=== PATIENT | female | born 1995 | race Caucasian/White ===

== ENCOUNTER 2020-10-09 10:47 | Inpatient (IN) | payer MEDICAID, SELFPAY ==
[2020-10-09] VITALS (8 sets, daily range): BP systolic 111–141; BP diastolic 69–88; PULSE 78–101; RESP 16–18; TEMP 36.7–36.9; O2SAT 93–100; BMI 24.8
--- NOTE | 2020-10-09 11:12 | PC.NURSE ---
Pt is awake, lookingaround and responds to her name but will not respond to questions in Mexican or Macedonian. She has made several attempts to exit the bed and now has sitter at bedside.
--- NOTE | 2020-10-09 11:45 | ED_ITS ---
HPI - Psych General Chief Complaint: ETOH/Substance Use <RYDER Ortega - Last Filed: 10/09/20 15:18> Stated Complaint: UNDER THE INFLUENCE OF UNK SUBSTANCE <RYDER Ortega - Last Filed: 10/09/20 15:18> Time Seen by Provider: 10/09/20 11:45 <RYDER Ortega - Last Filed: 10/09/20 15:18> Source: EMS <RYDER Ortega - Last Filed: 10/09/20 15:18> Mode of arrival: EMS <RYDER Ortega - Last Filed: 10/09/20 15:18> Limitations: altered mental status <RYDER Ortega - Last Filed: 10/09/20 15:18> History of Present Illness HPI Narrative: 25 y/o female presenting via EMS with AMS. Per neighbors and family patient developed strange behavior today after using unknown substance. She was having trouble speaking, looked like she was going to fall over. She reportedly vomited. She was found by EMS with possible urine on her socks and only half clothed. She was tachycardic to 120, awake and alert but not answering any questions. <RYDER Ortega - Last Filed: 10/09/20 15:18> Related Data Home Medications: Home Medications Medication Instructions Recorded Confirmed Unobtainable 10/09/20 10/09/20 <RYDER Ortega - Last Filed: 10/09/20 15:18> Allergies/Adverse Reactions: Allergies Allergy/AdvReac Type Severity Reaction Status Date / Time No Known Allergies Allergy Unverified 08/16/20 19:53 [No Known Allergies*] <RYDER Ortega - Last Filed: 10/09/20 15:18> Review of Systems Review of Systems: Yes Unobtainable due to mental status <RYDER Ortega - Last Filed: 10/09/20 15:18> [facility] Past Medical History Attestation statement: The following information was validated with the patient. <RYDER Ortega - Last Filed: 10/09/20 15:18> Social History Social History: Social History Household Members: Significant Other Housing: Apartment Alcohol intake: unknown Smoking Status: Current every day smoker Tobacco Type: Cigarette Smoked in Last 30 Days: Yes Patient Interested in Nicotine Replacement: No Patient Given Instructions on How to Stop Smoking: No Second Hand Smoke Exposure: No Use of substances other than those prescribed or required for medical reasons: Unable to respond Substance Use Type: Crack/Cocaine Substance Use Frequency: Occasionally Last Used Substance: Days (ago) Currently Displaying Signs/Symptoms of Drug Intoxication Withdrawal: No Any prior treatment program specific to substance use: No Have you been hit, kicked, punched, or otherwise hurt by someone within the past year? If so, by whom?: No Do you feel safe in your current relationship?: Yes Is there a partner from a previous relationship who is making you feel unsafe now?: No Are you made to feel afraid or neglected: No Advance Directives: No Advance Directives Information Provided: No Do you have thoughts of harming others: None Do you have a plan to hurt others: No Plan Recently lost weight without trying: Yes service: No <RYDER Ortega - Last Filed: 10/09/20 15:18> Physical Exam Vital Signs: Vital Signs: Last Vital Signs Temp 98.4 F 10/12/20 00:00 Pulse 77 10/12/20 00:00 Resp 16 10/12/20 00:00 BP 100/59 L 10/12/20 00:00 Pulse Ox 99 10/12/20 00:00 Body Mass Index 24.8 Appearance: Alert. Restless, picking at her hosptial gown. Eyes: Pupils equal, round and reactive to light. ENT: Pharynx normal. Neck: Normal inspection. Neck supple. CVS: tachycardic, regular rhythm. Pulses normal. Respiratory: No respiratory distress. Breath sounds normal. Abdomen: Soft and nontender. +BS x4 Skin: Skin warm and dry. Normal skin color. Normal skin turgor. No rashes. Extremities: No lower extremity edema. Neuro: non-verbal, follows simple commands intermittently, moving all 4 extremiities spontaneously, not cooperative with examination. <RYDER Ortega - Last Filed: 10/09/20 15:18> Vital Signs: Last Vital Signs Temp 98.4 F 10/12/20 00:00 Pulse 77 10/12/20 00:00 Resp 16 10/12/20 00:00 BP 100/59 L 10/12/20 00:00 Pulse Ox 99 10/12/20 00:00 Body Mass Index 24.8 <Santosh Alatorre MD - Last Filed: 10/12/20 02:03> Course Course Course Narrative: 25 y/o with AMS after possible drug ingestion. Used staff physical therapy assistant and patient admitted to using cocaine and smoking marijuana. Concern for lacing with PCP given her behaviors. Possible seizure activity with reports of urinary incontinence at home. Utox and labs pending. Sitter placed at bedside for safety. Will reassess. <RYDER Ortega - Last Filed: 10/09/20 15:18> I have discussed the case and management with the ANANT <Santosh Alatorre MD - Last Filed: 10/12/20 02:03> Reevaluation(s) Reevaluation #1: Critical acetamenophen level of 174 - poison control contacted. Unknown time or quantity of ingestion. Recommending 21 hour NAC protocol. 150 mg/kg loading dose ordered for now with plan to start 50 mg/kg infusion over 4 hours and then 100 mg/kg infusion over 16 hours. INR added to lab work. Utox pending. LFTs within normal limits. Patient re-interviewed with paraprofessional interpreter. She is now much more verbal however still confused. Admits to taking Tylenol last night. States she took 38 milligrams and is unreliable in her responses. She remains confused. Will admit to the hospital. <RYDER Ortega - Last Filed: 10/09/20 15:18> Reevaluation #2: Spoke with hospitalist who accepts admission. <RYDER Ortega - Last Filed: 10/09/20 15:18> Consultations Consultation #1: Poison Control <RYDER Ortega - Last Filed: 10/09/20 15:18> MDM - Psych Differential Diagnosis Differential diagnosis: Likely acute psychosis, suicidal ideation, bipolar disorder, depression, drug-induced psychotic disorder, acute anxiety, autism, substance abuse, alcohol intoxication, overdose and schizoaffective disorder <RYDER Ortega - Last Filed: 10/09/20 15:18> Lab Data Result diagrams: : 10/10/20 04:01 10/10/20 04:01 <RYDER Ortega - Last Filed: 10/09/20 15:18> Labs: Lab Results 10/09/20 10/09/20 10/09/20 Range/Units 12:26 12:26 12:26 WBC 17.2 H (4.8-10.8) X10*3/uL RBC 4.77 (4.20-5.50) X10*6/uL Hgb 12.8 (12.0-16.0) g/dl Hct 40.8 (37-47) % MCV 85.5 (80-98) fL MCH 26.8 L (27.0-33.0) pg MCHC 31.4 (31.0-35.0) g/dl RDW 12.7 (11.0-16.0) % Plt Count 465 H (160-400) X10*3/uL MPV 9.9 (9.4-12.3) fL Immature Gran % (Auto) 0.4 (0.0-0.4) % Neut % (Auto) 87.0 H (45-73) % Lymph % (Auto) 8.3 L (20-40) % Hockley % (Auto) 4.0 (2-11) % Eos % (Auto) 0.0 (0-4) % Baso % (Auto) 0.3 (0-2) % Lymph # (Auto) 1.4 (1.2-4.9) X10*3/uL [place]ockley # (Auto) 0.7 (0.1-1.2) X10*3/uL Eos # (Auto) 0.0 (0.0-0.4) X10*3/uL Baso # (Auto) 0.1 (0.0-0.2) X10*3/uL Abs Immat Gran (auto) 0.07 H (0.00-0.03) X10*3/uL Absolute Neuts (auto) 15.0 H (2.0-8.3) X10*3/uL Absolute Nucleated RBC 0.000 (0.0-0.012) X10*3/uL Nucleated RBC % (auto) 0.0 (0.0-0.2) /100WBC PT (10.8-13.0) SEC INR (0.9-1.1) Sodium 143 (135-145) mmol/L Potassium 4.0 (3.3-5.1) mmol/l Chloride 108 (96-108) mmol/L Carbon Dioxide 22 (22-29) mmol/L Anion Gap 17 (12-20) BUN 7 L (9-16) mg/dL Creatinine 0.73 (0.5-1.4) mg/dL Estim Creat Clear Calc 104.1 Estimated GFR > 60 Random Glucose 98 (60-115) mg/dL Calcium 9.5 (8.4-10.2) mg/dL Total Bilirubin 0.3 (0.0-1.0) mg/dL AST 26 (5-31) U/L ALT 29 (0-31) U/L Alkaline Phosphatase 68 (39-117) U/L Total Protein 7.7 (6.5-8.0) g/dL Albumin 4.9 (3.5-5.0) g/dL Urine Test (NEGATIVE) Salicylates < 5.0 L (15-30) mg/dL Urine Opiates Screen (Not Detect) Acetaminophen 174 H* (<30) mcg/mL Ur Barbiturates Screen (Not Detect) Ur Phencyclidine Scrn (Not Detect) Ur Amphetamines Screen (Not Detect) U Benzodiazepines Scrn (Not Detect) Urine Cocaine Screen (Not Detect) U Marijuana (THC) Screen (Not Detect) Ethyl Alcohol < 10 mg/dL 10/09/20 10/09/20 10/09/20 Range/Units 14:01 14:01 14:10 WBC (4.8-10.8) X10*3/uL RBC (4.20-5.50) X10*6/uL Hgb (12.0-16.0) g/dl Hct (37-47) % MCV (80-98) fL MCH (27.0-33.0) pg MCHC (31.0-35.0) g/dl RDW (11.0-16.0) % Plt Count (160-400) X10*3/uL MPV (9.4-12.3) fL Immature Gran % (Auto) (0.0-0.4) % Neut % (Auto) (45-73) % Lymph % (Auto) (20-40) % Hockley % (Auto) (2-11) % Eos % (Auto) (0-4) % Baso % (Auto) (0-2) % Lymph # (Auto) (1.2-4.9) X10*3/uL [place] # (Auto) (0.1-1.2) X10*3/uL Eos # (Auto) (0.0-0.4) X10*3/uL Baso # (Auto) (0.0-0.2) X10*3/uL Abs Immat Gran (auto) (0.00-0.03) X10*3/uL Absolute Neuts (auto) (2.0-8.3) X10*3/uL Absolute Nucleated RBC (0.0-0.012) X10*3/uL Nucleated RBC % (auto) (0.0-0.2) /100WBC PT 13.6 H (10.8-13.0) SEC INR 1.1 (0.9-1.1) Sodium (135-145) mmol/L Potassium (3.3-5.1) mmol/l Chloride (96-108) mmol/L Carbon Dioxide (22-29) mmol/L Anion Gap (12-20) BUN (9-16) mg/dL Creatinine (0.5-1.4) mg/dL Estim Creat Clear Calc Estimated GFR Random Glucose (60-115) mg/dL Calcium (8.4-10.2) mg/dL Total Bilirubin (0.0-1.0) mg/dL AST (5-31) U/L ALT (0-31) U/L Alkaline Phosphatase (39-117) U/L Total Protein (6.5-8.0) g/dL Albumin (3.5-5.0) g/dL Urine Test NEGATIVE (NEGATIVE) Salicylates (15-30) mg/dL Urine Opiates Screen Not Detected (Not Detect) Acetaminophen (<30) mcg/mL Ur Barbiturates Screen Not Detected (Not Detect) Ur Phencyclidine Scrn Not Detected (Not Detect) Ur Amphetamines Screen Not Detected (Not Detect) U Benzodiazepines Scrn Not Detected (Not Detect) Urine Cocaine Screen POSITIVE H (Not Detect) U Marijuana (THC) Screen Not Detected (Not Detect) Ethyl Alcohol mg/dL <RYDER Ortega - Last Filed: 10/09/20 15:18> Lab Results 10/09/20 10/09/20 10/09/20 Range/Units 12:26 12:26 12:26 WBC 17.2 H (4.8-10.8) X10*3/uL RBC 4.77 (4.20-5.50) X10*6/uL Hgb 12.8 (12.0-16.0) g/dl Hct 40.8 (37-47) % MCV 85.5 (80-98) fL MCH 26.8 L (27.0-33.0) pg MCHC 31.4 (31.0-35.0) g/dl RDW 12.7 (11.0-16.0) % Plt Count 465 H (160-400) X10*3/uL MPV 9.9 (9.4-12.3) fL Immature Gran % (Auto) 0.4 (0.0-0.4) % Neut % (Auto) 87.0 H (45-73) % Lymph % (Auto) 8.3 L (20-40) % Hockley % (Auto) 4.0 (2-11) % Eos % (Auto) 0.0 (0-4) % Baso % (Auto) 0.3 (0-2) % Lymph # (Auto) 1.4 (1.2-4.9) X10*3/uL [place] # (Auto) 0.7 (0.1-1.2) X10*3/uL Eos # (Auto) 0.0 (0.0-0.4) X10*3/uL Baso # (Auto) 0.1 (0.0-0.2) X10*3/uL Abs Immat Gran (auto) 0.07 H (0.00-0.03) X10*3/uL Absolute Neuts (auto) 15.0 H (2.0-8.3) X10*3/uL Absolute Nucleated RBC 0.000 (0.0-0.012) X10*3/uL Nucleated RBC % (auto) 0.0 (0.0-0.2) /100WBC PT (10.8-13.0) SEC INR (0.9-1.1) Sodium 143 (135-145) mmol/L Potassium 4.0 (3.3-5.1) mmol/l Chloride 108 (96-108) mmol/L Carbon Dioxide 22 (22-29) mmol/L Anion Gap 17 (12-20) BUN 7 L (9-16) mg/dL Creatinine 0.73 (0.5-1.4) mg/dL Estim Creat Clear Calc 104.1 Estimated GFR > 60 Random Glucose 98 (60-115) mg/dL Calcium 9.5 (8.4-10.2) mg/dL Total Bilirubin 0.3 (0.0-1.0) mg/dL AST 26 (5-31) U/L ALT 29 (0-31) U/L Alkaline Phosphatase 68 (39-117) U/L Total Protein 7.7 (6.5-8.0) g/dL Albumin 4.9 (3.5-5.0) g/dL Urine Test (NEGATIVE) Salicylates < 5.0 L (15-30) mg/dL Urine Opiates Screen (Not Detect) Acetaminophen 174 H* (<30) mcg/mL Ur Barbiturates Screen (Not Detect) Ur Phencyclidine Scrn (Not Detect) Ur Amphetamines Screen (Not Detect) U Benzodiazepines Scrn (Not Detect) Urine Cocaine Screen (Not Detect) U Marijuana (THC) Screen (Not Detect) Ethyl Alcohol < 10 mg/dL 10/09/20 10/09/20 10/09/20 Range/Units 14:01 14:01 14:10 WBC (4.8-10.8) X10*3/uL RBC (4.20-5.50) X10*6/uL Hgb (12.0-16.0) g/dl Hct (37-47) % MCV (80-98) fL MCH (27.0-33.0) pg MCHC (31.0-35.0) g/dl RDW (11.0-16.0) % Plt Count (160-400) X10*3/uL MPV (9.4-12.3) fL Immature Gran % (Auto) (0.0-0.4) % Neut % (Auto) (45-73) % Lymph % (Auto) (20-40) % [place]ock[place] % (Auto) (2-11) % Eos % (Auto) (0-4) % Baso % (Auto) (0-2) % Lymph # (Auto) (1.2-4.9) X10*3/uL [place] # (Auto) (0.1-1.2) X10*3/uL Eos # (Auto) (0.0-0.4) X10*3/uL Baso # (Auto) (0.0-0.2) X10*3/uL Abs Immat Gran (auto) (0.00-0.03) X10*3/uL Absolute Neuts (auto) (2.0-8.3) X10*3/uL Absolute Nucleated RBC (0.0-0.012) X10*3/uL Nucleated RBC % (auto) (0.0-0.2) /100WBC PT 13.6 H (10.8-13.0) SEC INR 1.1 (0.9-1.1) Sodium (135-145) mmol/L Potassium (3.3-5.1) mmol/l Chloride (96-108) mmol/L Carbon Dioxide (22-29) mmol/L Anion Gap (12-20) BUN (9-16) mg/dL Creatinine (0.5-1.4) mg/dL Estim Creat Clear Calc Estimated GFR Random Glucose (60-115) mg/dL Calcium (8.4-10.2) mg/dL Total Bilirubin (0.0-1.0) mg/dL AST (5-31) U/L ALT (0-31) U/L Alkaline Phosphatase (39-117) U/L Total Protein (6.5-8.0) g/dL Albumin (3.5-5.0) g/dL Urine Test NEGATIVE (NEGATIVE) Salicylates (15-30) mg/dL Urine Opiates Screen Not Detected (Not Detect) Acetaminophen (<30) mcg/mL Ur Barbiturates Screen Not Detected (Not Detect) Ur Phencyclidine Scrn Not Detected (Not Detect) Ur Amphetamines Screen Not Detected (Not Detect) U Benzodiazepines Scrn Not Detected (Not Detect) Urine Cocaine Screen POSITIVE H (Not Detect) U Marijuana (THC) Screen Not Detected (Not Detect) Ethyl Alcohol mg/dL <Santosh Alatorre MD - Last Filed: 10/12/20 02:03> Critical Care Time Critical Care Time Critical Care Time: Yes <RYDER Ortega - Last Filed: 10/09/20 15:18> Total Critical Care Time: 45 <RYDER Ortega - Last Filed: 10/09/20 15:18> Attestation: I attest to critical care time spent caring for this patient. She has potential life threatening diagnosis at high risk for deterioration. <RYDER Ortega - Last Filed: 10/09/20 15:18> Discharge Plan Discharge Clinical Impression: Tylenol overdose Qualifiers: Encounter type: initial encounter Injury intent: undetermined intent Qualified Code(s): T39.1X4A - Poisoning by 4-Aminophenol derivatives, undetermined, initial encounter Altered mental status Qualifiers: Altered mental status type: delirium Qualified Code(s): R41.0 - Disorientation, unspecified <RYDER Ortega - Last Filed: 10/09/20 15:18> Patient Disposition: Admitted As Inpatient <RYDER Ortega - Last Filed: 10/09/20 15:18> Interventions: Admission Worksheet (ED) Last Done: 10/09/20 18:02 <RYDER Ortega - Last Filed: 10/09/20 15:18> Discharge Date/Time: 10/09/20 19:10 <RYDER Ortega - Last Filed: 10/09/20 15:18>
[2020-10-09 12:40] LABS: MANUAL DIFF FLAG NO
[2020-10-09 12:44] LABS: Basophils Absolute Auto 0.1 X10*3/uL (0.0-0.2); Basophils Percent Auto 0.3 % (0-2); Hematocrit 40.8 % (37-47); Hemoglobin 12.8 g/dl (12.0-16.0); Imm Gran Abs Auto 0.07 X10*3/uL (0.00-0.03); Imm Gran Pct Auto 0.4 % (0.0-0.4); Lymphocytes Absolute Auto 1.4 X10*3/uL (1.2-4.9); Lymphocytes Percent Auto 8.3 % (20-40); Mean Corpuscular HGB Conc 31.4 g/dl (31.0-35.0); Mean Corpuscular Hemoglobin 26.8 pg (27.0-33.0); Mean Corpuscular Volume 85.5 fL (80-98); Mean Platelet Volume 9.9 fL (9.4-12.3); Monocytes Absolute Auto 0.7 X10*3/uL (0.1-1.2); Platelet Count 465 X10*3/uL (160-400); Red Blood Count 4.77 X10*6/uL (4.20-5.50); Red Cell Distribution Width 12.7 % (11.0-16.0); White Blood Count 17.2 X10*3/uL (4.8-10.8)
[2020-10-09 13:08] LABS: Ethanol < 10 mg/dL
[2020-10-09 13:14] LABS: Alanine Aminotransferase 29 U/L (0-31); Albumin Level 4.9 g/dL (3.5-5.0); Alkaline Phosphatase 68 U/L (39-117); Anion Gap 17 (12-20); Aspartate Amino Transferase 26 U/L (5-31); Bilirubin Total 0.3 mg/dL (0.0-1.0); Blood Urea Nitrogen 7 mg/dL (9-16); Calcium 9.5 mg/dL (8.4-10.2); Carbon Dioxide 22 mmol/L (22-29); Chloride 108 mmol/L (96-108); Creatinine Clr Calc Pharmacy 104.1; Estimated Glomerular Filt Rate > 60; Glucose Random 98 mg/dL (60-115); Sodium 143 mmol/L (135-145); Total Protein 7.7 g/dL (6.5-8.0)
[2020-10-09 13:27] LABS: Salicylate < 5.0 mg/dL (15-30)
[2020-10-09 13:29] LABS: Acetaminophen LAB 174 mcg/mL (<30)
[2020-10-09] MEDS: 0.9 % Sodium Chloride 1,000 ML 999 ML IVCONT (14:12)
[2020-10-09 14:20] LABS: INTERNATIONAL NORM RATIO 1.1 (0.9-1.1); Prothrombin Time 13.6 SEC (10.8-13.0)
[2020-10-09 14:21] LABS: UPreg QC Valid YES; Urine Pregnancy NEGATIVE (NEGATIVE)
[2020-10-09 14:39] LABS: Amphetamine Screen Urine Not Detected (Not Detect); Barbiturates, Urine Not Detected (Not Detect); Benzodiazepines Screen Urine Not Detected (Not Detect); Cannabinoid Screen Urine Not Detected (Not Detect); Cocaine Screen Urine POSITIVE (Not Detect); Opiate Screen Urine Not Detected (Not Detect); Phencyclidine Screen Urine Not Detected (Not Detect)
--- NOTE | 2020-10-09 16:43 | PM.EVENT ---
Event Note Event Note: admission note Date of service 10/09/2020 the patient was seen and evaluated with Gwendolyn Beverly NP. I agree with her note, assessment and plan with the following. a 25 years old lady with no known past medical history presenting to the hospital with abnormal behavior. The patient complaining of abdominal pain for 1 night and has used some Tylenol as she reporting. Evaluation in the emergency showed positive test for high Tylenol level. The treatment and toxicity Tylenol intoxication The story is not clear, no previous hx of drug abuse or suicidal ideation elevated acetaminophine level of 174 Tox control center contacted Follow protocol of N acetyl cystine Follow liver function Rest of evaluations by [employer] OPERATOR note.
--- NOTE | 2020-10-09 18:30 | MHC.CARE ---
CARE team received consult for this patient in [facility] [place] 457-1. Contacted [facility] for further clarification. [facility] reports the patient is still in the ED awaiting transfer, and that she had an overdose. Consult is placed proactively as patient will likely not be able to meet until at least tomorrow. CARE team questioned whether this is a psych eval or for other supports. Unknown at this time. CARE team suggested patient will need to be seen by N due to insurance if it is a psych eval. Will touch base tomorrow to clarify how to best offer support, which may include suggesting referral to N for eval once medically cleared.
--- NOTE | 2020-10-09 18:45 | HP_ITS ---
DATE OF SERVICE: 10/09/2020 PRIMARY CARE PROVIDER: None. CHIEF COMPLAINT: Drug overdose. HISTORY OF PRESENT ILLNESS: A 25-year-old woman with history of substance abuse, presents to the ER after being found on the ground. According to the patient's girlfriend, Gina, she was not there at that time, however, apparently, the patient was driving home from her job in [place] and she received a call from the neighbor saying that they found her on the floor. She rushed home and was able to call EMS. According to the ER note, the patient had developed some strange behavior and had some trouble speaking and she vomited. She may have also urinated on herself. On arrival to the ER, she was still quite confused and it was thought initially that her symptoms are related to drug intoxication. Apparently, the patient did mention that she did use cocaine and smokes marijuana. Urine toxicology showed a critical acetaminophen level of 174. She was started on N-acetylcysteine protocol. During the interview with the patient, she was quite vague about what had happened and was even unable to give me her significant other's phone number. She seemed to be awake with some mild confusion. White blood cell count was elevated at 17.2. Her vital signs were stable, although she was noted to be tachycardic. No hypoxia was noted. Besides NAC protocol, she did receive some IV fluids. She came in for further management and treatment of Tylenol overdose. PAST MEDICAL HISTORY: Reports asthma. PAST SURGICAL HISTORY: Cholecystectomy. SOCIAL HISTORY: Uses cocaine and marijuana. Denies tobacco or alcohol use. SOCIAL HISTORY: Lives with her significant other and children. FAMILY HISTORY: Denies any cardiac disease. ALLERGIES: NO KNOWN ALLERGIES. MEDICATIONS: None. LABORATORY DATA: White blood cell count 17.2, hemoglobin 12.8, hematocrit 40.8, platelets 465. Sodium is 143, potassium is 4.0, chloride is 108, bicarb is 22, BUN is 7, creatinine is 0.73. Tylenol level is 174. Urine, cocaine positive. REVIEW OF SYSTEMS: CONSTITUTIONAL: Denies any recent fever, chills, or decrease in appetite. RESPIRATORY: Denies any shortness of breath, cough, or sputum production. CARDIOVASCULAR: Denies any chest pain, orthopnea, PND, or edema. GASTROINTESTINAL: Denies any dysphagia, abdominal pain, nausea, vomiting, or diarrhea. GENITOURINARY: Denies any dysuria, frequency, or hematuria. MUSCULOSKELETAL: Denies any joint pain or swelling. NEUROPSYCH: Denies any weakness or seizures. All other systems are reviewed and are negative. PHYSICAL EXAMINATION: CONSTITUTIONAL: Resting in bed, appearing in no acute distress. VITAL SIGNS: 98.2, 101, 16, 141/88, 100% on room air. SKIN: Intact without rash or open sores. HEENT: Head is normocephalic, atraumatic. Eyes, pupils are PERRLA. Sclerae anicteric. Mouth and Throat: Mucous membranes are intact and moist. NECK: Supple. No lymphadenopathy. No JVD noted. CHEST: Clear to auscultation without wheezes, rhonchi, or rales. HEART: Regular rate and rhythm. Clear S1, S2. No murmurs, rubs, or gallops. ABDOMEN: Positive bowel sounds. Abdomen is soft, nontender. No hepatomegaly or splenomegaly noted. NEURO: The patient is alert and oriented x3. Some confusion is noted. No focal deficits noted. ASSESSMENT AND PLAN: A 25-year-old woman, who is being admitted after possible Tylenol overdose. She also used cocaine and marijuana, however, the patient was quite vague and was unable to say how many Tylenol she actually took. The only thing she mentioned was that she took 2 ibuprofen because of abdominal pain. 1. Tylenol overdose. N-acetylcysteine protocol started. The patient seemed to be awake, somewhat vague. Vital signs are stable. We will check Tylenol and LFTs every 4 hours as per Poison Control. consult. 2. Asthma. No exacerbation, not on any home medications. 3. Substance abuse. consultation. 4. Leukocytosis. May be reactive. We will check urinalysis. 5. Deep vein thrombosis prophylaxis with early ambulation. 6. Case discussed with Dr. Juárez. 7. Full code. ALBERTO Santa MD JR/CAROL / [phone]
[2020-10-09 18:49] LABS: COVID-19 Test Negative (Negative)
--- NOTE | 2020-10-09 19:09 | PC.NURSE ---
pt has been resting quietly, wakes at times and converses quietly with staff but not using full sentences. She has not been able to explain why she is here or what happened today.Pt awaits transport to floor.
[2020-10-09 20:22] LABS: Acetaminophen LAB 39 mcg/mL (<30); Alanine Aminotransferase 25 U/L (0-31); Alkaline Phosphatase 56 U/L (39-117); Aspartate Amino Transferase 21 U/L (5-31); Bilirubin Direct 0.2 mg/dL (0.0-0.5); Bilirubin Total 0.3 mg/dL (0.0-1.0); Total Protein 6.3 g/dL (6.5-8.0)
[2020-10-09] MEDS: 0.9 % Sodium Chloride Flush 3 ML SYRINGE IVFLUSH (21:30)
[2020-10-10] VITALS (9 sets, daily range): BP systolic 99–126; BP diastolic 57–78; PULSE 78–88; RESP 16–19; TEMP 36.6–37.1; O2SAT 97–99
[2020-10-10] MEDS: 0.9 % Sodium Chloride Flush 3 ML SYRINGE IVFLUSH ×2 (00:07→07:25)
[2020-10-10 01:23] LABS: Acetaminophen LAB 11 mcg/mL (<30); Alanine Aminotransferase 24 U/L (0-31); Albumin Level 3.8 g/dL (3.5-5.0); Alkaline Phosphatase 51 U/L (39-117); Aspartate Amino Transferase 19 U/L (5-31); Bilirubin Direct 0.2 mg/dL (0.0-0.5); Bilirubin Total 0.4 mg/dL (0.0-1.0); Total Protein 5.9 g/dL (6.5-8.0)
[2020-10-10 04:13] LABS: Basophils Absolute Auto 0.1 X10*3/uL (0.0-0.2); Basophils Percent Auto 0.8 % (0-2); Eosinophils Absolute Auto 0.1 X10*3/uL (0.0-0.4); Eosinophils Percent Auto 0.6 % (0-4); Imm Gran Abs Auto 0.02 X10*3/uL (0.00-0.03); Imm Gran Pct Auto 0.2 % (0.0-0.4); Lymphocytes Absolute Auto 2.8 X10*3/uL (1.2-4.9); Lymphocytes Percent Auto 33.3 % (20-40); MANUAL DIFF FLAG NO; Mean Corpuscular HGB Conc 31.4 g/dl (31.0-35.0); Mean Corpuscular Hemoglobin 26.9 pg (27.0-33.0); Mean Corpuscular Volume 85.6 fL (80-98); Mean Platelet Volume 9.9 fL (9.4-12.3); Monocytes Absolute Auto 0.6 X10*3/uL (0.1-1.2); Monocytes Percent Auto 7.4 % (2-11); Neutrophils Absolute Auto 4.8 X10*3/uL (2.0-8.3); Neutrophils Percent Auto 57.7 % (45-73); Platelet Count 330 X10*3/uL (160-400); Red Blood Count 4.09 X10*6/uL (4.20-5.50); Red Cell Distribution Width 12.9 % (11.0-16.0); White Blood Count 8.4 X10*3/uL (4.8-10.8)
[2020-10-10 04:50] LABS: Acetaminophen LAB 4 mcg/mL (<30); Alanine Aminotransferase 23 U/L (0-31); Albumin Level 3.8 g/dL (3.5-5.0); Alkaline Phosphatase 52 U/L (39-117); Aspartate Amino Transferase 18 U/L (5-31); Bilirubin Direct 0.3 mg/dL (0.0-0.5); Bilirubin Total 0.4 mg/dL (0.0-1.0); Total Protein 5.9 g/dL (6.5-8.0)
[2020-10-10 04:54] LABS: Anion Gap 11 (12-20); Blood Urea Nitrogen 8 mg/dL (9-16); Calcium 8.5 mg/dL (8.4-10.2); Carbon Dioxide 20 mmol/L (22-29); Chloride 111 mmol/L (96-108); Creatinine Clr Calc Pharmacy 104.1; Estimated Glomerular Filt Rate > 60; Glucose Random 94 mg/dL (60-115); Potassium 3.3 mmol/l (3.3-5.1); Sodium 139 mmol/L (135-145)
--- NOTE | 2020-10-10 08:14 | P.CDIC_ITS ---
CDI Concurrent Query Service Date: 10/10/20 Documentation Clarification: Please clarify if you are treating a proba ble/suspected/likely or confirmed: Toxic/metabolic encephalopathy poa Delirium poa Please specify if known Provider Response: Other Other Diagnosis: Toxic encephalopathy at presentation PLEASE DO NOT DELETE/MODIFY EXISTING CONTENT Additional information is needed in order to code to the highest accuracy and appropriate Severity of Illness (SOI). Please clarify the information noted below in your progress notes and discharge summary. Risk Factors/Clinical Indicators/Treatments Altered mental status, confused, tylenol, cocaine. Labs: Acetaminophen 39 H Cocaine positive Ed: Clinical impression - Delirium, disorientation, unspecified, Altered mental status, critical acetaminophen level of 174. CDS: Tabitha Petit CCS, CDIS Contact Number: [phone]. [phone] Please Review the information above and exercise your independent professional judgment in responding to the query. If you concur, pleas document in the PROGRESS NOTES and DISCHARGE SUMMARY. If you do not agree with the query, pleas e document in the query above. THIS QUERY IS PART OF THE PERMANENT MEDICAL RECORD
[2020-10-10 09:27] LABS: Alanine Aminotransferase 21 U/L (0-31); Albumin Level 3.6 g/dL (3.5-5.0); Alkaline Phosphatase 50 U/L (39-117); Aspartate Amino Transferase 18 U/L (5-31); Bilirubin Direct 0.3 mg/dL (0.0-0.5); Bilirubin Total 0.6 mg/dL (0.0-1.0); Total Protein 5.7 g/dL (6.5-8.0)
[2020-10-10 09:37] LABS: Acetaminophen LAB 1 mcg/mL (<30)
--- NOTE | 2020-10-10 10:44 | MHC.CARE ---
per pass along a consult was sent to CARE team prior to pts admission to medical unit. Based on pts overdose on tylenol and use of other substances along with unknown precip pt will need a referral to N crisis. T/w informed pts nurse that this referral is warranted. Nsg agreed to pass along to pts doc. T/w also alerted CM team that this case will need to be referred to N. If further intervention or tx from the CARE team is needed please call [phone].
--- NOTE | 2020-10-10 11:14 | MHC.CM.PN ---
dc plan is home with a referral to [facility] ,51 a filed with [facility] hotline n to see pt prio to dc
--- NOTE | 2020-10-10 11:20 | MHC.CM.PN ---
51 a filed and faxed to [facility] pt reports being involved with [facility] in fall stating her case was closed 5 months ago pt came to er with an overdoese pt will be seen by n to determine whetether it was intenetional pt also tested postive for cocaine pt staes her 2 children are being cared for by her partner reinaldo ellison pt possible dc today
[2020-10-10 12:15] LABS: INTERNATIONAL NORM RATIO 1.2 (0.9-1.1); Prothrombin Time 14.8 SEC (10.8-13.0)
[2020-10-10 12:29] LABS: Acetaminophen LAB 1 mcg/mL (<30)
--- NOTE | 2020-10-10 12:55 | HO.PM.IMPN ---
Subjective Subjective Date of Service: 10/10/20 Interval History: the patient was seen and evaluated this morning Laying in bed, feels comfortable Denies any fever, chills or shortness of breath Denies any suicidal ideation No reported other overnight events. Review of Systems Review of Systems: Yes all other systems are reviewed and are negative Constitutional No fever, chills or weakness No chest pain, palpitation No shortness of breath or coughing No abdominal pain, nausea or vomiting No urinary symptoms No any rash or wounds Physical Exam Vital Signs: Vital Signs: Last Vital Signs Temp 98.8 F 10/10/20 11:36 Pulse 78 10/10/20 11:36 Resp 17 10/10/20 11:36 BP 126/78 10/10/20 11:36 Pulse Ox 97 10/10/20 11:36 Body Mass Index 24.8 Constitutional : Alert, oriented, not in distress Neck : Normal inspection, Supple Cardiovascular : RRR, S1 S2, no lower extremity edema Respiratory : Good bilateral air entry, no crackles, wheezes or rhonchi Gastrointestinal: soft, lax, Normal bowel sounds, Non tender Skin : Warm/Dry, No rash Neurological : Alert & oriented x3, No focal deficit Objective Data Current Medications Generic Name Dose Route Start Last Admin Trade Name Freq PRN Reason Stop Dose Admin Acetaminophen 650 mg 10/09/20 17:38 Acetaminophen 325 Mg Tablet PO Q6H PRN Pain, Mild (Pain Scale 1-3) Acetylcysteine 3,350 mg/ 516.75 mls @ 129.188 mls/hr 10/09/20 15:45 10/10/20 05:47 Dextrose IV Infused ONCE VALE Infusion Acetylcysteine 6,770 mg/ 1,033.85 mls @ 64.616 mls/hr 10/09/20 15:45 10/09/20 21:29 Dextrose IV 64.62 mls/hr ONCE VALE Administration Ondansetron HCl 4 mg 10/09/20 17:38 Ondansetron Hcl 4 Mg/2 Ml Vial IVPUSH Q8H PRN Nausea and Vomiting Pharmacy Consult 1 each 10/09/20 14:10 Consult Rx Perform Med Rec MISCELLANE ONCE PRN Consult order Sodium Chloride 3 ml 10/09/20 17:38 10/10/20 07:25 0.9 % Sodium Chloride Flush 3 Ml Syringe IVFLUSH 3 ml QSHIFT VALE Administration Labs CBC & Chem 7: 10/10/20 04:01 10/10/20 04:01 Assessment and Plan (1) Drug abuse: Status: Acute (2) Tylenol overdose: Status: Acute (3) Altered mental status: Status: Acute (4) Toxic encephalopathy: Status: Acute Assessment and Plan: A 25-year-old woman with PMH of asthma who presents to the hospital with altered mentation and Tylenol overdose. Tylenol overdose N-acetylcysteine protocol to finish around noon Repeated LFT within normal Acetaminophen level dropping down Follow with Poison Control Asthma No exacerbation not on any home medications Substance abuse Positive test for cocaine Care team following Suicidal risk And clear reason behind the Tylenol overdose Crisis team evaluated the patient, recommended section 12 To look for inpatient psych Toxic encephalopathy Presented in ED, resolved now secondary to drug abuse Leukocytosis. Likely reactive. Resolved now No clear source of infection Deep vein thrombosis prophylaxis early ambulation.
--- NOTE | 2020-10-10 13:13 | PC.NURSE ---
patient pulled iv out, aware and ok to leave it out for now
--- NOTE | 2020-10-10 14:58 | MHC.CM.PN ---
[facility] investigators here to see pt they will be speaking with ubaldo as well
[2020-10-10 15:25] LABS: Alanine Aminotransferase 22 U/L (0-31); Albumin Level 3.6 g/dL (3.5-5.0); Alkaline Phosphatase 50 U/L (39-117); Aspartate Amino Transferase 18 U/L (5-31); Bilirubin Direct 0.2 mg/dL (0.0-0.5); Bilirubin Total 0.5 mg/dL (0.0-1.0); Total Protein 5.8 g/dL (6.5-8.0)
[2020-10-10 15:56] LABS: Alanine Aminotransferase 22 U/L (0-31); Albumin Level 3.7 g/dL (3.5-5.0); Alkaline Phosphatase 52 U/L (39-117); Aspartate Amino Transferase 18 U/L (5-31); Bilirubin Direct 0.2 mg/dL (0.0-0.5); Bilirubin Total 0.4 mg/dL (0.0-1.0); Total Protein 5.9 g/dL (6.5-8.0)
[2020-10-11] MEDS: 0.9 % Sodium Chloride Flush 3 ML SYRINGE IVFLUSH (01:59)
[2020-10-11 03:04] VITALS: BP 121/64; PULSE 76; RESP 19; TEMP 36.7; O2SAT 99
[2020-10-11 05:11] LABS: INTERNATIONAL NORM RATIO 1.1 (0.9-1.1)
[2020-10-11 05:32] LABS: Alanine Aminotransferase 19 U/L (0-31); Albumin Level 3.7 g/dL (3.5-5.0); Alkaline Phosphatase 49 U/L (39-117); Aspartate Amino Transferase 14 U/L (5-31); Bilirubin Direct 0.2 mg/dL (0.0-0.5); Bilirubin Total 0.4 mg/dL (0.0-1.0); Total Protein 5.9 g/dL (6.5-8.0)
[2020-10-11 07:43] VITALS: BP 117/64; PULSE 84; RESP 18; TEMP 37.4; O2SAT 97
[2020-10-11] MEDS: Acetaminophen 325 MG TABLET 650 MG PO (08:36)
--- NOTE | 2020-10-11 10:26 | HO.PM.IMPN ---
Subjective Subjective Date of Service: 10/11/20 Interval History: Seen in follow-up for Tylenol overdose suicidal attempt. Has sitter, denies suicidal thoughts at the moment. ROS: no fever, No SI Physical Exam Vital Signs: Vital Signs: Last Vital Signs Temp 99.3 F 10/11/20 07:43 Pulse 84 10/11/20 07:43 Resp 18 10/11/20 07:43 BP 117/64 10/11/20 07:43 Pulse Ox 97 10/11/20 07:43 Body Mass Index 24.8 Constitutional Awake and Alert, No apparent distress HEENT: normal sclera Neck Supple, No lymphadenopathy Cardiovascular RRR, No M/R/G, S1 S2, No S3 S4, No pedal edema Respiratory Lungs clear, No respiratory distress Gastrointestinal Non tender, Non-distended Skin No rash Neurological Alert & oriented x3 Psychological Appropriate affect Objective Data Current Medications Generic Name Dose Route Start Last Admin Trade Name Freq PRN Reason Stop Dose Admin Acetaminophen 650 mg 10/11/20 08:17 10/11/20 08:36 Acetaminophen 325 Mg Tablet PO 650 mg Q6H PRN Administration Pain, Mild (Pain Scale 1-3) Ondansetron HCl 4 mg 10/09/20 17:38 Ondansetron Hcl 4 Mg/2 Ml Vial IVPUSH Q8H PRN Nausea and Vomiting Pharmacy Consult 1 each 10/09/20 14:10 Consult Rx Perform Med Rec MISCELLANE ONCE PRN Consult order Sodium Chloride 3 ml 10/09/20 17:38 10/11/20 01:59 0.9 % Sodium Chloride Flush 3 Ml Syringe IVFLUSH 3 ml QSHIFT VALE Administration Labs CBC & Chem 7: 10/10/20 04:01 10/10/20 04:01 Assessment and Plan (1) Drug abuse: Status: Acute (2) Tylenol overdose: Status: Acute (3) Altered mental status: Status: Acute (4) Toxic encephalopathy: Status: Acute Assessment and Plan: A 25-year-old woman with PMH of asthma who presents to the hospital with altered mentation and Tylenol overdose. Tylenol overdose N-acetylcysteine protocol completed Repeated LFT within normal, check again today Acetaminophen has come down Repeat LFTs and INR Asthma No exacerbation not on any home medications Substance abuse Positive test for cocaine Care team following Suicidal risk And clear reason behind the Tylenol overdose Crisis team evaluated the patient, recommended section 12 and inpatient Psych Toxic encephalopathy Presented in ED, resolved now secondary to drug abuse Leukocytosis. Likely reactive. Resolved now No clear source of infection Deep vein thrombosis prophylaxis early ambulation.
[2020-10-11 11:27] VITALS: BP 112/70; PULSE 86; RESP 18; TEMP 37.2; O2SAT 98
[2020-10-11 12:33] LABS: Alanine Aminotransferase 31 U/L (0-31); Albumin Level 4.1 g/dL (3.5-5.0); Alkaline Phosphatase 56 U/L (39-117); Aspartate Amino Transferase 31 U/L (5-31); Bilirubin Direct 0.2 mg/dL (0.0-0.5); Bilirubin Total 0.3 mg/dL (0.0-1.0); Total Protein 6.4 g/dL (6.5-8.0)
[2020-10-11 16:00] VITALS: BP 121/78; PULSE 69; RESP 18; TEMP 36.6; O2SAT 100
[2020-10-11 19:01] VITALS: BP 119/74; PULSE 75; RESP 18; TEMP 36.8; O2SAT 99
[2020-10-12] VITALS: BP 100/59; PULSE 77; RESP 16; TEMP 36.9; O2SAT 99
--- NOTE | 2020-10-12 | ECG_ITS ---
Test Reason : TYLENOL OVERDOSE Blood Pressure : / mmHG Vent. Rate : 080 BPM Atrial Rate : 080 BPM P-R Int : 126 ms QRS Dur : 070 ms QT Int : 368 ms P-R-T Axes : 067 043 039 degrees QTc Int : 424 ms Normal sinus rhythm Normal ECG No previous ECGs available Referred By: Sylvain Paiz Electronically Signed By:MARYAM PEÑA MD
[2020-10-12 04:00] VITALS: BP 115/68; PULSE 68; RESP 16; O2SAT 99
[2020-10-12 07:32] VITALS: BP 110/58; PULSE 86; RESP 18; TEMP 36.4; O2SAT 100
--- NOTE | 2020-10-12 09:49 | HO.PM.IMPN ---
Subjective Subjective Date of Service: 10/12/20 Interval History: Seen in f/u for APAP overdose, suicide attempt. Denies SI attempt Review of Systems Gen: no fever Resp: no sob, no cough CV: no chest, no ZUÑIGA, no leg edema GI: No n/v, no abd pain Neuro: No confusion Psych: No si, normal affect Physical Exam Vital Signs: Vital Signs: Last Vital Signs Temp 97.6 F 10/12/20 07:32 Pulse 86 10/12/20 07:32 Resp 18 10/12/20 07:32 BP 110/58 L 10/12/20 07:32 Pulse Ox 100 10/12/20 07:32 Body Mass Index 24.8 Constitutional Awake and Alert, No apparent distress HEENT: normal sclera Neck Supple, No lymphadenopathy Cardiovascular RRR, No M/R/G, S1 S2, No S3 S4, No pedal edema Respiratory Lungs clear, No respiratory distress Gastrointestinal Non tender, Non-distended Skin No rash Neurological Alert & oriented x3 Psychological Appropriate affect Objective Data Current Medications Generic Name Dose Route Start Last Admin Trade Name Darrinq PRN Reason Stop Dose Admin Acetaminophen 650 mg 10/11/20 08:17 10/11/20 08:36 Acetaminophen 325 Mg Tablet PO 650 mg Q6H PRN Administration Pain, Mild (Pain Scale 1-3) Ondansetron HCl 4 mg 10/09/20 17:38 Ondansetron Hcl 4 Mg/2 Ml Vial IVPUSH Q8H PRN Nausea and Vomiting Pharmacy Consult 1 each 10/09/20 14:10 Consult Rx Perform Med Rec MISCELLANE ONCE PRN Consult order Sodium Chloride 3 ml 10/09/20 17:38 10/12/20 08:06 0.9 % Sodium Chloride Flush 3 Ml Syringe [facility]USH [facility] CBC & Chem 7: 10/10/20 04:01 10/10/20 04:01 Assessment and Plan (1) Drug abuse: Status: Acute (2) Tylenol overdose: Status: Acute (3) Altered mental status: Status: Acute (4) Toxic encephalopathy: Status: Acute Assessment and Plan: A 25-year-old woman with PMH of asthma who presents to the hospital with altered mentation and Tylenol overdose. Tylenol overdose N-acetylcysteine protocol completed Repeated LFT within normal, Asthma No exacerbation not on any home medications Substance abuse Positive test for cocaine Care team following Suicidal risk And clear reason behind the Tylenol overdose Crisis team evaluated the patient, recommended section 12 and inpatient Psych Toxic encephalopathy Presented in ED, resolved now secondary to drug abuse Leukocytosis. Likely reactive. Resolved now No clear source of infection Deep vein thrombosis prophylaxis early ambulation. to Psych today if bed available
--- NOTE | 2020-10-12 11:06 | PM.DS ---
DS: Providers Provider Date of admission: 10/09/20 15:31 Primary care physician: Unknown Physician Consults: 10/09/20 17:48 Consult to Care Team Routine Comment: Reason for consultation: overdose 10/10/20 10:19 Consult to Crisis Stat Reason for consultation: Acetaminophen overdose, unclear story for your eval for pos. self harm 10/11/20 07:32 Consult to Crisis Stat Reason for consultation: Medically ready for dc , s/p intentional tyelnol overdose Has provider been notified: No DS: Diagnosis Discharge Diagnosis (1) Drug abuse: Status: Acute (2) Tylenol overdose: Status: Acute (3) Altered mental status: Status: Acute (4) Toxic encephalopathy: Status: Acute DS: Medications Discharge Medications Home Medications: Home Medications Medication Instructions Recorded Confirmed Unobtainable 10/09/20 10/09/20 DS: Summary Hospital Course Hospital Course: HISTORY OF PRESENT ILLNESS: A 25-year-old woman with history of substance abuse, presents to the ER after being found on the ground. According to the patient's girlfriend, Gina, she was not there at that time, however, apparently, the patient was driving home from her job in [place] and she received a call from the neighbor saying that they found her on the floor. She rushed home and was able to call EMS. According to the ER note, the patient had developed some strange behavior and had some trouble speaking and she vomited. She may have also urinated on herself. On arrival to the ER, she was still quite confused and it was thought initially that her symptoms are related to drug intoxication. Apparently, the patient did mention that she did use cocaine and smokes marijuana. Urine toxicology showed a critical acetaminophen level of 174. She was started on N-acetylcysteine protocol. During the interview with the patient, she was quite vague about what had happened and was even unable to give me her significant other's phone number. She seemed to be awake with some mild confusion. White blood cell count was elevated at 17.2. Her vital signs were stable, although she was noted to be tachycardic. No hypoxia was noted. Besides NAC protocol, she did receive some IV fluids. She came in for further management and treatment of Tylenol overdose. PAST MEDICAL HISTORY: Reports asthma. Hospital course: She was admitted for suicide attempt by intentional tyelenol overdose and has completed treatement with Mucomyst. LFTS have been within normal and INR is normal also. [facility] recommends inpatient Psych treatment. Time Spent with Patient Time attestation: Total time spent providing and/or coordinating discharge services: Physical Exam Vital Signs: Vital Signs: Last Vital Signs Temp 99.3 F 10/11/20 07:43 Pulse 84 10/11/20 07:43 Resp 18 10/11/20 07:43 BP 117/64 10/11/20 07:43 Pulse Ox 97 10/11/20 07:43 Body Mass Index 24.8 General: AO X 3, no acute distress HEENT: no jaundic Resp: CTA bilateral CVS: S1,S2,RRR GI: +BS, NT, no distention Skin: No rash Neuro: motor grossly intact Psych: appropriate affect DS: Data Data Completed and Pending Labs on day of discharge: 10/09/20 12:26 Acetaminophen LAB Stat Complete Blood Count Auto Diff Stat Comprehensive Met. Panel Stat Ethanol Stat Salicylate Stat 10/09/20 13:45 0.9 % Sodium Chloride [Ns] 1,000 ml IVCONT 999 mls/hr 10/09/20 13:48 Acetylcysteine [Acetadote] 10,155 mg Dextrose 5 % [D5w] 200 ml IV ONCE 10/09/20 14:01 Drug Screen Urine Stat Ur Preg Test Stat 10/09/20 14:10 Prothrombin Time INR Stat 10/09/20 14:17 Acetylcysteine [Acetadote] 6,000 mg IV .STK-MED ONE 10/09/20 15:30 Transfer Order Routine 10/09/20 Lunch Regular Diet Acetylcysteine [Acetadote] 3,350 mg Dextrose 5 % [D5w] 500 ml IV ONCE Acetylcysteine [Acetadote] 6,770 mg Dextrose 5 % [D5w] 1,000 ml IV ONCE 10/09/20 17:49 COVID-19 ID NOW (William) Stat 10/09/20 19:44 Acetaminophen LAB Q4H WHILE AWAKE Liver Panel Q4H WHILE AWAKE 10/10/20 00:33 Acetaminophen LAB Q4H WHILE AWAKE Liver Panel Q4H WHILE AWAKE 10/10/20 04:01 Acetaminophen LAB Q4H WHILE AWAKE Basic Metabolic Panel DAILY@0600 Complete Blood Count Auto Diff DAILY@0600 Liver Panel Q4H WHILE AWAKE 10/10/20 08:33 Acetaminophen LAB Q4H WHILE AWAKE Liver Panel Q4H WHILE AWAKE 10/10/20 11:45 Acetaminophen LAB Routine Liver Panel Routine Prothrombin Time INR Routine 10/10/20 15:13 Add Laboratory Test Urgent 10/10/20 15:17 Liver Panel Urgent 10/11/20 04:25 Liver Panel Routine Prothrombin Time INR DAILY@0600 Laboratory Last Values WBC 8.4 X10*3/uL (4.8-10.8) 10/10/20 04:01 RBC 4.09 X10*6/uL (4.20-5.50) L 10/10/20 04:01 Hgb 11.0 g/dl (12.0-16.0) L 10/10/20 04:01 Hct 35.0 % (37-47) L 10/10/20 04:01 MCV 85.6 fL (80-98) 10/10/20 04:01 MCH 26.9 pg (27.0-33.0) L 10/10/20 04:01 MCHC 31.4 g/dl (31.0-35.0) 10/10/20 04:01 RDW 12.9 % (11.0-16.0) 10/10/20 04:01 Plt Count 330 X10*3/uL (160-400) D 10/10/20 04:01 MPV 9.9 fL (9.4-12.3) 10/10/20 04:01 Immature Gran % (Auto) 0.2 % (0.0-0.4) 10/10/20 04:01 Neut % (Auto) 57.7 % (45-73) 10/10/20 04:01 Lymph % (Auto) 33.3 % (20-40) 10/10/20 04:01 [place] % (Auto) 7.4 % (2-11) 10/10/20 04:01 Eos % (Auto) 0.6 % (0-4) 10/10/20 04:01 Baso % (Auto) 0.8 % (0-2) 10/10/20 04:01 Lymph # (Auto) 2.8 X10*3/uL (1.2-4.9) 10/10/20 04:01 [place] # (Auto) 0.6 X10*3/uL (0.1-1.2) 10/10/20 04:01 Eos # (Auto) 0.1 X10*3/uL (0.0-0.4) 10/10/20 04:01 Baso # (Auto) 0.1 X10*3/uL (0.0-0.2) 10/10/20 04:01 Abs Immat Gran (auto) 0.02 X10*3/uL (0.00-0.03) 10/10/20 04:01 Absolute Neuts (auto) 4.8 X10*3/uL (2.0-8.3) 10/10/20 04:01 Absolute Nucleated RBC 0.000 X10*3/uL (0.0-0.012) 10/10/20 04:01 Nucleated RBC % (auto) 0.0 /100WBC (0.0-0.2) 10/10/20 04:01 PT 13.0 SEC (10.8-13.0) 10/11/20 04:25 INR 1.1 (0.9-1.1) 10/11/20 04:25 Sodium 139 mmol/L (135-145) 10/10/20 04:01 Potassium 3.3 mmol/l (3.3-5.1) 10/10/20 04:01 Chloride 111 mmol/L (96-108) H 10/10/20 04:01 Carbon Dioxide 20 mmol/L (22-29) L 10/10/20 04:01 Anion Gap 11 (12-20) L 10/10/20 04:01 BUN 8 mg/dL (9-16) L 10/10/20 04:01 Creatinine 0.73 mg/dL (0.5-1.4) 10/10/20 04:01 Estim Creat Clear Calc 104.1 10/10/20 04:01 Estimated GFR > 60 10/10/20 04:01 Random Glucose 94 mg/dL (60-115) 10/10/20 04:01 Calcium 8.5 mg/dL (8.4-10.2) D 10/10/20 04:01 Total Bilirubin 0.4 mg/dL (0.0-1.0) 10/11/20 04:25 Direct Bilirubin 0.2 mg/dL (0.0-0.5) 10/11/20 04:25 AST 14 U/L (5-31) 10/11/20 04:25 ALT 19 U/L (0-31) 10/11/20 04:25 Alkaline Phosphatase 49 U/L (39-117) 10/11/20 04:25 Total Protein 5.9 g/dL (6.5-8.0) L 10/11/20 04:25 Albumin 3.7 g/dL (3.5-5.0) 10/11/20 04:25 Urine Test NEGATIVE (NEGATIVE) 10/09/20 14:01 Salicylates < 5.0 mg/dL (15-30) L 10/09/20 12:26 Urine Opiates Screen Not Detected (Not Detect) 10/09/20 14:01 Acetaminophen 1 mcg/mL (<30) 10/10/20 11:45 Ur Barbiturates Screen Not Detected (Not Detect) 10/09/20 14:01 Ur Phencyclidine Scrn Not Detected (Not Detect) 10/09/20 14:01 Ur Amphetamines Screen Not Detected (Not Detect) 10/09/20 14:01 U Benzodiazepines Scrn Not Detected (Not Detect) 10/09/20 14:01 Urine Cocaine Screen POSITIVE (Not Detect) H 10/09/20 14:01 U Marijuana (THC) Screen Not Detected (Not Detect) 10/09/20 14:01 Ethyl Alcohol < 10 mg/dL 10/09/20 12:26 COVID-19 (RAYO) Negative (Negative) 10/09/20 17:49 COVID-19 Clin Com See Note 10/09/20 17:49 Discharge Plan Discharge Disposition: Xfer Psychiatric Hosp Referrals: Physician,Unknown [Primary Care Provider] - Discharge Medications: No Action Unobtainable RF: 0 Discharge Orders: Discharge Order (Routine); Ordered 10/12/20 Ordered By: Sylvain [facility] Visit Report Forms: Patient Portal Discharge page Care Plan Goals: Prevent self harm, suicide Health Concerns: Suicide ideation Plan of Treatment: Inpatient Psychiatric treatment
--- NOTE | 2020-10-12 11:56 | MHC.CM.PN ---
[facility] facilitating dc to psych hospitialpt pt is medically stable for dc
[2020-10-12 12:00] VITALS: RESP 20
== END 2020-10-12 15:02 | DRG 817 ==
LOC: HO.ED 14:05 → HO.IMC 15:49
PROVIDERS: Nurse Practitioner Acute Care; Physician Assistant; Admitting Provider Student in an Organized Health Care Education/Training Program; Emergency Provider Emergency Medicine; Visit Provider Internal Medicine
DX: T39.1X2A Poisoning by 4-Aminophenol derivatives, intentional self-harm, initial encounter (principal); G92 Toxic encephalopathy; D72.829 Elevated white blood cell count, unspecified; J45.909 Unspecified asthma, uncomplicated; Y92.9 Unspecified place or not applicable; F14.10 Cocaine abuse, uncomplicated; Z20.828 Contact with and (suspected) exposure to other viral communicable diseases
CPT/HCPCS: 36415; 80048; 80053; 80076; 80307; 80320; 81025; 85025; 85610; 87635; 93005; 96361; 96374; 96376; 99285; 99291; G0480; J0132

== ENCOUNTER 2020-10-12 15:11 | Inpatient (IN) | payer MEDICAID, SELFPAY ==
[2020-10-12 15:53] VITALS: BMI 54.4
[2020-10-12 18:00] VITALS: BP 118/75; PULSE 79; TEMP 36.4
--- NOTE | 2020-10-12 18:49 | PC.ADMIT ---
Pt is a 25 year-old female who was assesssed by N on 10/10/[place] [facility] [place] intentionally overdosing on an unknown amount of Tylenol which resulted in a critical ecetaminophen level of 174 on 10/09/20. It was also reported by her girlfriend,that she had a bottle of 80 sleeping pills that were missing. During the assessment pt reported her stephane as good with an incongruent affect as Pt was crying. Pt reports her appetite is normal and has not been sleeping due to nightmares. Pt denied her overdose was a suicide attempt. Pt keeps reporting that she only took 2 t00mg Tylenol. Pt was minimizing of the attempt and continued to in subsequent questioning. Pt has no current mentaL health providers and is unknown to N. Pt came to at 1500. Pt is Yi speaking only. Pt denies SI/HI, NO Ah/Vh. Pt pleasant cooperative. Pt wants to leave because she is concerned that she will lose her job. She reports she has to go back to work on Thursday. Pt signed a CV. Pt is oon 5 min checks tonight with unlocked bathroom.
[2020-10-13 06:30] VITALS: BP 110/58; PULSE 84; RESP 16; TEMP 37.1
[2020-10-13 08:23] LABS: Alanine Aminotransferase 26 U/L (0-31); Albumin Level 3.9 g/dL (3.5-5.0); Alkaline Phosphatase 57 U/L (39-117); Anion Gap 10 (12-20); Aspartate Amino Transferase 17 U/L (5-31); Bilirubin Total 0.2 mg/dL (0.0-1.0); Blood Urea Nitrogen 19 mg/dL (9-16); Calcium 8.8 mg/dL (8.4-10.2); Carbon Dioxide 25 mmol/L (22-29); Chloride 108 mmol/L (96-108); Creatinine Clr Calc Pharmacy 192.7; Estimated Glomerular Filt Rate > 60; Glucose Fasting 106 mg/dL (60-99); Potassium 4.2 mmol/l (3.3-5.1); Sodium 139 mmol/L (135-145); Total Protein 6.2 g/dL (6.5-8.0)
[2020-10-13 08:37] LABS: TSH reflex Free T4 1.37 mIU/mL (0.32-4.0)
[2020-10-13] MEDS: Nicotine 21 MG PATCH.TD24 TRANSDERMA (08:50)
--- NOTE | 2020-10-13 11:41 | P.HPPS_ITS ---
HPI Chief Complaint: OD tylenol Sources of Information: patient interviewed, chart reviewed and crisis/core team assessment reviewed HPI Narrative: pt [place] [facility] [place] for reported intentional overdose on tylenol and possibly an unknown sleeping pill; she was treated in medical unit and medically cleared; she arrive on M5 with CV. 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 Pt adamantly denies intentional overdose today upon interview; she reports she was trying to treat a terrible headache; she says she took 5 extra strength tylenol to treat headache. She denies intent to suicide. she denies depression, anxiety, or any increase in stress. she denies SI or HI; she denies auditory or visual hallucinations; she is very guarded and suspicious in interview; she appears frightened and states she wants to go home; she states she does not need an antidepressant; she denies depressed mood, denies trouble sleeping. she denies any recent changes in mood or energy.She states she ahs no need for a therapist or aftercare but she states I will go to see a therapist if thats what you what me to do. Past Psychiatric History: she denies any past history of psychiatric symptoms or care Medical Evaluation Reviewed: Yes tylenol level upon arrival to hospital 174 PMFSH Narrative: Pt medically cleared prior to admit to [facility]. s/p tylenol overdose Family History: lives with female partner and 3 children Social History: works fulltime in factory Substance History: pt denies tox screen positive for cocaine Trauma History: pt denies Diagnostics Vital Signs (24Hr): Vital Signs - 24 hr 10/12/20 18:00 10/13/20 06:30 Temperature 97.5 F 98.8 F Pulse Rate 79 84 Respiratory Rate 16 Blood Pressure 118/75 110/58 L Body Mass Index 54.4 Labs Results: 10/13/20 07:38 10/13/20 07:38 Labs: Laboratory Results - last 48 hr 10/13/20 07:38 Sodium 139 Potassium 4.2 D Chloride 108 Carbon Dioxide 25 Anion Gap 10 L BUN 19 H D Creatinine 0.67 Estim Creat Clear Calc 192.7 Estimated GFR > 60 Fasting Glucose 106 H Calcium 8.8 Total Bilirubin 0.2 AST 17 D ALT 26 Alkaline Phosphatase 57 Total Protein 6.2 L Albumin 3.9 TSH 1.37 Meds/Allergies Meds Home Medications Al Hydroxide/Mg Hydroxide (Magnesium Hydrox/Alum Hydrox 30 Ml Oral.Susp) 30 ml PO Q6H PRN PRN Reason: Heartburn/Nausea Last Admin: 10/13/20 13:20 Dose: 30 ml Documented by: Hydroxyzine HCl (Hydroxyzine Hcl 25 Mg Tablet) 25 mg PO BEDTIME PRN PRN Reason: Anxiety Magnesium Hydroxide (Milk Of Magnesia 30 Ml Oral.Susp) 30 ml PO DAILY PRN PRN Reason: Constipation Nicotine (Nicotine 21 Mg Patch.Td24) 21 mg TRANSDERMA DAILY VALE Last Admin: 10/13/20 08:50 Dose: 21 mg Documented by: Nicotine Polacrilex (Nicotine Polacrilex 4 Mg Lozenge) 4 mg BUCCAL Q2H PRN PRN Reason: Nicotine Cravings Last Admin: 10/12/20 19:13 Dose: 4 mg Documented by: Trazodone HCl (Trazodone Hcl 50 Mg Tablet) 50 mg PO BEDTIME PRN PRN Reason: Insomnia Allergies Allergies Allergy/AdvReac Type Severity Reaction Status Date / Time No Known Allergies Allergy Unverified 08/16/20 19:53 [No Known Allergies*] Mental Status Exam Mental Status Exam Patient Appearance: Appropriate Patient Orientation: Person and Situation Level of Consciousness: Appropriate and Alert Patient Behavior: Guarded and Suspicious Mood Description: Withdrawn and Anxious Affect Description: Anxious and Apprehensive Ability to Follow Directions: Good Speech Pattern: Monotone Hallucinations: None (Denies) Thought Content: positive for Evasive Judgement: Poor Assessment & Plan Assessment & Plan (1) Drug abuse: Status: Acute Code(s): F19.10 - Other psychoactive substance abuse, uncomplicated (2) Tylenol overdose: Status: Acute Qualifiers: Encounter type: initial encounter Injury intent: undetermined intent Qualified Code(s): T39.1X4A - Poisoning by 4-Aminophenol derivatives, undete rmined, initial encounter Code(s): T39.1X1A - Poisoning by 4-Aminophenol derivatives, accidental (unintentional), initial encounter (3) Toxic encephalopathy: Status: Acute Code(s): G92 - Toxic encephalopathy (4) Altered mental status: Status: Acute Qualifiers: Altered mental status type: delirium Qualified Code(s): R41.0 - Disorientation, unspecified Code(s): R41.82 - Altered mental status, unspecified Assessment and Plan: 15 min checks collect collateral/possible family meeting groups aftercare plan Patient educated on: medication risk/benefits and medical condition Informed Consent: further education needed Reason for continued inpatient stay Substantial Risk for: harm to self
--- NOTE | 2020-10-13 12:13 | PC.NURSE ---
Signed 3 day notice up 10/17. , GO, Henrietta liu.
[2020-10-13] MEDS: Magnesium Hydrox/Alum Hydrox 30 ML ORAL.SUSP PO (13:20)
[2020-10-13 18:00] VITALS: BP 106/55; PULSE 75; TEMP 36.7
[2020-10-14 06:08] VITALS: BP 101/49; PULSE 89; RESP 14; TEMP 37.3; O2SAT 100
--- NOTE | 2020-10-14 12:04 | HO.PSYCHPN ---
Subjective Subjective Date of Service: 10/14/20 Reason For Visit: OD tylenol Subjective Notes: Conditional Voluntary Interim History: pt refused labs this am; re-ordered for tomrrow;pt appears depressed;possibly undernourished; pt anemic. She is denying depression, anxiety, psychosis; she is denying SI or HI; she appears frightened. Attending Groups: Yes Review of Systems Review of Systems Yes all other systems are reviewed and are negative Mental Status Exam Mental Status Exam Patient Appearance: Fatigued and Appropriate Patient Orientation: Person, Place, Time and Situation Level of Consciousness: Awake and Alert Patient Behavior: Appropriate, Guarded, Cooperative, Anxious and Fearful Mood Description: Withdrawn and Anxious Affect Description: Constricted, Anxious and Flat Ability to Follow Directions: Good Speech Pattern: Appropriate Memory Description: Episodic Impaired Hallucinations: None Thought Process: Evasive Thought Content: positive for [place] Judgement: Poor Judgement and Insight: pt denies overdose, minimizes, has changed details of how many tylenol she took and denies taking sleeping pills Diagnostics Vital Signs (24Hr): Vital Signs - 24 hr 10/13/20 18:00 10/14/20 06:08 Temperature 98.1 F 99.1 F Pulse Rate 75 89 Respiratory Rate 14 Blood Pressure 106/55 L 101/49 L Pulse Oximetry 100 Body Mass Index 54.4 Labs Results: 10/13/20 07:38 10/13/20 07:38 Labs: Laboratory Results - last 48 hr 10/13/20 07:38 Sodium 139 Potassium 4.2 D Chloride 108 Carbon Dioxide 25 Anion Gap 10 L BUN 19 H D Creatinine 0.67 Estim Creat Clear Calc 192.7 Estimated GFR > 60 Fasting Glucose 106 H Calcium 8.8 Total Bilirubin 0.2 AST 17 D ALT 26 Alkaline Phosphatase 57 Total Protein 6.2 L Albumin 3.9 TSH 1.37 Medications Medications Current Medications Generic Name Dose Route Start Last Admin Trade Name Freq PRN Reason Stop Dose Admin Al Hydroxide/Mg Hydroxide 30 ml 10/12/20 17:01 10/13/20 13:20 Magnesium Hydrox/Alum Hydrox 30 Ml Oral.Susp PO 30 ml Q6H PRN Administration Heartburn/Nausea Hydroxyzine HCl 25 mg 10/12/20 17:01 Hydroxyzine Hcl 25 Mg Tablet PO BEDTIME PRN Anxiety Magnesium Hydroxide 30 ml 10/12/20 17:01 Milk Of Magnesia 30 Ml Oral.Susp PO DAILY PRN Constipation Nicotine 21 mg 10/13/20 09:00 10/14/20 08:50 Nicotine 21 Mg Patch.Td24 TRANSDERMA Not Given DAILY VALE Nicotine Polacrilex 4 mg 10/12/20 18:51 10/12/20 19:13 Nicotine Polacrilex 4 Mg Lozenge BUCCAL 4 mg Q2H PRN Administration Nicotine Cravings Trazodone HCl 50 mg 10/12/20 17:01 Trazodone Hcl 50 Mg Tablet PO BEDTIME PRN Insomnia Allergies Allergies Allergy/AdvReac Type Severity Reaction Status Date / Time No Known Allergies Allergy Unverified 08/16/20 19:53 [No Known Allergies*] Assessment & Plan Assessment & Plan (1) Tylenol overdose: Qualifiers: Encounter type: initial encounter Injury intent: undetermined intent Qualified Code(s): T39.1X4A - Poisoning by 4-Aminophenol derivatives, undetermined, initial encounter Status: Acute Code(s): T39.1X1A - Poisoning by 4-Aminophenol derivatives, accidental (unintentional), initial encounter (2) Altered mental status: Qualifiers: Altered mental status type: delirium Qualified Code(s): R41.0 - Disorientation, unspecified Status: Acute Code(s): R41.82 - Altered mental status, unspecified Assessment and Plan: continue to educate and engage patient in mental health discussion and safety labs for am - CBC, CMP, TSH with reflex t4 to recheck anemia, kidneys and liver r/o thyroid dysfunction collect collateral, consider family meeting encourage consideration of antidepressant encourage fluids Greater than 50% of the session was spent on counseling and/or coordination of care Patient educated on: diagnosis, medication risk/benefits and medical condition Informed Consent: further education needed Reason for contiued inpatient stay Substantial Risk for: harm to self, rapid decompensation and med/psych decompensation
[2020-10-14 18:00] VITALS: BP 108/63; PULSE 81; TEMP 36.9
[2020-10-15 06:15] VITALS: BP 112/59; PULSE 83; RESP 16; TEMP 37.2
[2020-10-15 07:51] LABS: MANUAL DIFF FLAG NO
[2020-10-15 07:54] LABS: Basophils Absolute Auto 0.1 X10*3/uL (0.0-0.2); Basophils Percent Auto 0.5 % (0-2); Eosinophils Absolute Auto 0.2 X10*3/uL (0.0-0.4); Eosinophils Percent Auto 2.2 % (0-4); Hematocrit 40.6 % (37-47); Hemoglobin 12.5 g/dl (12.0-16.0); Imm Gran Abs Auto 0.04 X10*3/uL (0.00-0.03); Imm Gran Pct Auto 0.4 % (0.0-0.4); Lymphocytes Absolute Auto 2.7 X10*3/uL (1.2-4.9); Lymphocytes Percent Auto 27.2 % (20-40); Mean Corpuscular HGB Conc 30.8 g/dl (31.0-35.0); Mean Corpuscular Volume 84.6 fL (80-98); Mean Platelet Volume 9.7 fL (9.4-12.3); Monocytes Absolute Auto 0.8 X10*3/uL (0.1-1.2); Monocytes Percent Auto 8.2 % (2-11); Neutrophils Absolute Auto 6.1 X10*3/uL (2.0-8.3); Neutrophils Percent Auto 61.5 % (45-73); Platelet Count 386 X10*3/uL (160-400); Red Cell Distribution Width 12.3 % (11.0-16.0)
[2020-10-15 08:19] LABS: Alanine Aminotransferase 46 U/L (0-31); Albumin Level 4.3 g/dL (3.5-5.0); Alkaline Phosphatase 63 U/L (39-117); Anion Gap 12 (12-20); Aspartate Amino Transferase 25 U/L (5-31); Bilirubin Total 0.4 mg/dL (0.0-1.0); Blood Urea Nitrogen 14 mg/dL (9-16); Calcium 9.1 mg/dL (8.4-10.2); Carbon Dioxide 24 mmol/L (22-29); Chloride 106 mmol/L (96-108); Creatinine Clr Calc Pharmacy 181.8; Estimated Glomerular Filt Rate > 60; Glucose Fasting 98 mg/dL (60-99); Potassium 4.5 mmol/l (3.3-5.1); Sodium 137 mmol/L (135-145)
[2020-10-15 08:39] LABS: TSH reflex Free T4 1.81 mIU/mL (0.32-4.0)
--- NOTE | 2020-10-15 09:22 | HO.PSYCHPN ---
Subjective Subjective Reason For Visit: OD tylenol Diagnostics Vital Signs (24Hr): Vital Signs - 24 hr 10/14/20 18:00 10/15/20 06:15 Temperature 98.5 F 98.9 F Pulse Rate 81 83 Respiratory Rate 16 Blood Pressure 108/63 112/59 L Body Mass Index 54.4 Labs Results: 10/15/20 07:46 10/15/20 07:46 Labs: Laboratory Results - last 48 hr 10/15/20 10/15/20 07:46 07:46 WBC 10.0 RBC 4.80 Hgb 12.5 Hct 40.6 MCV 84.6 MCH 26.0 L MCHC 30.8 L RDW 12.3 Plt Count 386 MPV 9.7 Immature Gran % (Auto) 0.4 Neut % (Auto) 61.5 Lymph % (Auto) 27.2 [place] % (Auto) 8.2 Eos % (Auto) 2.2 Baso % (Auto) 0.5 Lymph # (Auto) 2.7 [place] # (Auto) 0.8 Eos # (Auto) 0.2 Baso # (Auto) 0.1 Abs Immat Gran (auto) 0.04 H Absolute Neuts (auto) 6.1 Absolute Nucleated RBC 0.000 Nucleated RBC % (auto) 0.0 Sodium 137 Potassium 4.5 Chloride 106 Carbon Dioxide 24 Anion Gap 12 BUN 14 Creatinine 0.71 Estim Creat Clear Calc 181.8 Estimated GFR > 60 Fasting Glucose 98 Calcium 9.1 Total Bilirubin 0.4 AST 25 D ALT 46 H Alkaline Phosphatase 63 Total Protein 7.0 Albumin 4.3 TSH 1.81 Medications Medications Current Medications Generic Name Dose Route Start Last Admin Trade Name Freq PRN Reason Stop Dose Admin Al Hydroxide/Mg Hydroxide 30 ml 10/12/20 17:01 10/13/20 13:20 Magnesium Hydrox/Alum Hydrox 30 Ml Oral.Susp PO 30 ml Q6H PRN Administration Heartburn/Nausea Hydroxyzine HCl 25 mg 10/12/20 17:01 Hydroxyzine Hcl 25 Mg Tablet PO BEDTIME PRN Anxiety Magnesium Hydroxide 30 ml 10/12/20 17:01 Milk Of Magnesia 30 Ml Oral.Susp PO DAILY PRN Constipation Nicotine 21 mg 10/13/20 09:00 10/15/20 08:57 Nicotine 21 Mg Patch.Td24 TRANSDERMA Not Given DAILY VALE Nicotine Polacrilex 4 mg 10/12/20 18:51 11/15/20 20:31 Nicotine Polacrilex 4 Mg Lozenge BUCCAL 4 mg Q2H PRN Administration Nicotine Cravings Trazodone HCl 50 mg 10/12/20 17:01 Trazodone Hcl 50 Mg Tablet PO BEDTIME PRN Insomnia Allergies Allergies Allergy/AdvReac Type Severity Reaction Status Date / Time No Known Allergies Allergy Unverified 08/16/20 19:53 [No Known Allergies*] Assessment & Plan Greater than 50% of the session was spent on counseling and/or coordination of care
--- NOTE | 2020-10-15 20:23 | PM.PSYDC ---
DS: Providers Provider Date of admission: 10/12/20 15:11 Date of discharge: 10/15/20 Primary care physician: Unknown Physician Attending physician on admission: Charo Maier Attending physician on discharge: Valeria Brothers DS: Diagnosis Discharge Diagnosis (1) Tylenol overdose: Status: Acute (2) Altered mental status: Status: Acute DS: Medications Discharge Medications Home Medications: Home Medications Medication Instructions Recorded Confirmed No Known Home Meds 10/13/20 10/13/20 Discharge Plan Discharge Patient Disposition: Home, Self-Care Referrals: [facility] - patient will call [Other] Physician,Unknown [Primary Care Provider] - Discharge Medications: No Action No Known Home Meds RF: 0 Discharge Orders: Discharge Order (Routine); Ordered 10/15/20 Ordered By: Valeria Brothers Diet: advance to usual diet Activity on Discharge: As tolerated Stand Alone Forms: Community Support Discharge Date/Time: 10/15/20 17:04 Visit Report Forms: Patient Portal Discharge page Care Plan Goals: Stay healthy and active Health Concerns: S/P unintended OD Plan of Treatment: Call your PCP if you become depressed or anxious Mental Status Exam Mental Status Exam Patient Appearance: Well Grooomed and Appropriate Patient Orientation: Person, Place, Time and Situation Level of Consciousness: Awake and Alert Patient Behavior: Appropriate and Cooperative Mood Description: Calm Affect Description: Calm and Constricted Ability to Follow Directions: Good Speech Pattern: Clear and Appropriate Memory Description: Intact Hallucinations: None Delusions: Not Present Thought Process: Intact Thought Content: positive for Intact, positive for [place], negative for Suicidal Ideation and negative for Homicidal Ideation Judgement: Good Judgement and Insight: pt denies overdose, minimizes, has changed details of how many tylenol she took and denies taking sleeping pills Data Data Completed and Pending Completed studies during hospitalization [Text1]: 10/13/20 10/15/20 10/15/20 07:38 07:46 07:46 WBC 10.0 RBC 4.80 Hgb 12.5 Hct 40.6 MCV 84.6 MCH 26.0 L MCHC 30.8 L RDW 12.3 Plt Count 386 MPV 9.7 Immature Gran % (Auto) 0.4 Neut % (Auto) 61.5 Lymph % (Auto) 27.2 [place] % (Auto) 8.2 Eos % (Auto) 2.2 Baso % (Auto) 0.5 Lymph # (Auto) 2.7 [place] # (Auto) 0.8 Eos # (Auto) 0.2 Baso # (Auto) 0.1 Abs Immat Gran (auto) 0.04 H Absolute Neuts (auto) 6.1 Absolute Nucleated RBC 0.000 Nucleated RBC % (auto) 0.0 Sodium 139 137 Potassium 4.2 D 4.5 Chloride 108 106 Carbon Dioxide 25 24 Anion Gap 10 L 12 BUN 19 H D 14 Creatinine 0.67 0.71 Estim Creat Clear Calc 192.7 181.8 Estimated GFR > 60 > 60 Fasting Glucose 106 H 98 Calcium 8.8 9.1 Total Bilirubin 0.2 0.4 AST 17 D 25 D ALT 26 46 H Alkaline Phosphatase 57 63 Total Protein 6.2 L 7.0 Albumin 3.9 4.3 TSH 1.37 1.81 DS: Summary Hospital Course Hospital Course: Individual arrived to [facility] [place] for reported intentional overdose on tylenol and possibly an unknown sleeping pill; she was treated in medical unit and medically cleared. She arrived on M5 with CV, but promptly put in a 3 day notice. Pt is interviewed by Tonya Maier with the help of an web press roll tender as the patient is Japanese speaking only. Pt adamantly denies intentional overdose today upon interview; she reports she was trying to treat a terrible headache; she says she took 5 extra strength tylenol to treat headache. She denies intent to suicide. she denies depression, anxiety, or any increase in stress. she denies SI or HI; she denies auditory or visual hallucinations; she is very guarded and suspicious in interview; she appears frightened and states she wants to go home; she states she does not need an antidepressant; she denies depressed mood, denies trouble sleeping. she denies any recent changes in mood or energy.She states she has no need for a therapist or aftercare but she states I will go to see a therapist if that's what you what me to do. Past Psychiatric History: she denies any past history of psychiatric symptoms or care. Fortunato was entirely cooperative during her stay. She continued to denies active psychiatric symptoms. She had no depression or anxiety. She had no SI. She was anxious to leave since she had been missing work and was in danger of losing her job unless she went tomorrow. SW was able to speak to her partner who had no concerns about her. She stated she was a happy person and that she would never hurt herself. She too was anxious for her to go home. Genia had no need for a therapist or psychiatrist. She was aware of resources should the need arise. Time Spent with Patient Time attestation: Total time spent providing and/or coordinating discharge services:
== END 2020-10-15 17:04 | disposition home or self-care (01) | DRG 756 ==
PROVIDERS: Clinical Nurse Specialist Psychiatric/Mental Health; Admitting Provider Psychiatry & Neurology Psychiatry; Visit Provider Psychiatry & Neurology Psychiatry
DX: R45.851 Suicidal ideations (principal); F17.210 Nicotine dependence, cigarettes, uncomplicated; Z71.6 Tobacco abuse counseling; Z91.5 Personal history of self-harm
CPT/HCPCS: 36415; 80053; 84443; 85025; 99222; 99233

== ENCOUNTER 2021-02-14 00:30 | Emergency (ER) | payer MEDICAID, SELFPAY ==
[2021-02-14 02:54] VITALS: BP 116/83; PULSE 80; RESP 16; TEMP 37.3; O2SAT 98; BMI 24.9
--- NOTE | 2021-02-14 03:46 | ED.SKABFB ---
HPI - Skin/Abscess/Foreign Bdy General Chief complaint: Skin/Abscess/Foreign Body Stated complaint: herpes Time Seen by Provider: 02/14/21 03:46 History of Present Illness HPI narrative: Patient is a 25-year-old female presents today with having pain to the left lower lip with the lesion noted to get bigger history of having cold sores in the past no fever no chills no systemic complaints. Patient has no significant past medical history. No allergies. Related Data Previous Rx's Medication Instructions Recorded acyclovir 200 mg PO 5XD 5 Days #25 cap 02/14/21 Allergies Allergy/AdvReac Type Severity Reaction Status Date / Time No Known Allergies Allergy Unverified 08/16/20 19:53 [No Known Allergies*] Review of Systems Review of Systems: Constitutional: No Weight loss, No Fever, No Chills, No Night Sweats, No Fatigue, No Malaise ENT/Mouth: No Hearing loss, No Ear Pain, No Nasal Congestion, No Sinus Pain, No Hoarseness, No sore throat, No Rhinorrhea, No Swallowing Difficulty Eyes: No Eye Pain, No Swelling, No Redness, No Foreign Body, No Discharge, No Vision Changes Cardiovascular: No Chest Pain, No SOB, No Dyspnea on Exertion, No Orthopnea, No Edema, No Palpitations Respiratory: No Cough, No Sputum, No Wheezing, No Smoke Exposure, No Dyspnea Gastrointestinal: No Nausea, No Vomiting, No Diarrhea, No Constipation, No abdominal Pain, No Hematochezia, No Melena Genitourinary: no irregular bleeding, No Dysuria, No Urinary Frequency, No Hematuria, No Urinary Incontinence, No Urgency, No Flank Pain, No Urinary Flow Changes, No Hesitancy Musculoskeletal: No joint pain, No Myalgias, No Joint Swelling Skin: Positive rash to the left lower lip Neuro: No Weakness, No Numbness, No Paresthesias, No Loss of Consciousness, No Dizziness, No Headache Psych: No Anxiety/Panic, No Depression, No SI/HI/AH/VH, No Social Issues, Heme/Lymph: No Bruising, No Bleeding,No Lymphadenopathy Endocrine: No Polyuria, No Polydipsia, No Temperature Intolerance PMFSH Past Medical History Medical History Asthma Drug abuse Social History Social History Household Members: Spouse and Children Housing: Apartment Alcohol intake: never Smoking Status: Current every day smoker Tobacco Type: Cigarette Packs Per Day: 1 Cigarettes Per Day: 20.0 Years Smoked: 1 year Second Hand Smoke Exposure: Yes Use of substances other than those prescribed or required for medical reasons: No Substance Use Type: Crack/Cocaine Advance Directives: No service: No Sexual orientation: Decline to Answer Physical Exam Vital Signs: Vital Signs: Last Vital Signs Temp 99.2 F 02/14/21 02:54 Pulse 80 02/14/21 02:54 Resp 16 02/14/21 02:54 BP 116/83 02/14/21 02:54 Pulse Ox 98 02/14/21 02:54 Body Mass Index 24.9 Appearance: Alert. Oriented X3. No acute distress. Eyes: Pupils equal, round and reactive to light. ENT: Pharynx normal. Neck: Normal inspection. Neck supple. No lymph nodes noted. No crepitus CVS: Normal heart rate and rhythm. Pulses normal. Normal S1 and S2 Respiratory: No respiratory distress. Breath sounds normal. No Wheezing. No rales Abdomen: Soft and nontender. No rigidity. No distention. good BS x4 Skin: Positive 0.5 cm x 0.5 cm vesicular lesion to the left lower lip. Painful to touch Extremities: No lower extremity edema. Neurovascular intact to all extremities. No Lacerations. No Rash Neuro: Oriented X 3. No motor deficit. No sensory deficit. Moving all extermities. No slurred speech MDM - Skin/Abscess/Foreign Bdy MDM Narrative Medical decision making narrative: Patient likely has a cold sore. Will start patient on anti viral. Will discharge patient home. Currently in stable condition. Discharge Plan Discharge Clinical Impression: Herpes labialis Patient Disposition: Home, Self-Care Instructions: Oral Herpes Simplex Virus Infections (ED) Prescriptions: New acyclovir 200 mg capsule 200 mg PO 5XD 5 Days Qty: 25 RF: 0 Referrals: Physician,None [Primary Care Provider] - 2 days Print Language: Divehi
== END 2021-02-14 03:58 | disposition home or self-care (01) ==
PROVIDERS: Emergency Provider Emergency Medicine Emergency Medical Services
DX: B00.1 Herpesviral vesicular dermatitis (principal); J45.909 Unspecified asthma, uncomplicated; F14.10 Cocaine abuse, uncomplicated; F17.210 Nicotine dependence, cigarettes, uncomplicated
CPT/HCPCS: 99283; 99284